=== PATIENT | male | born 1975 | race African-American/Black ===

== ENCOUNTER 2016-05-15 22:04 | Emergency (ER) | payer SELFPAY ==
[2016-05-15 22:44] VITALS: BP 139/84
--- NOTE | 2016-05-16 06:08 | EKG REPORT ---
SEVERITY:- NORMAL ECG - SINUS RHYTHM : Confirmed by: Alesha Turcios 16-May-2016 06:08:08
== END 2016-05-16 01:50 | disposition left against medical advice (07) ==
LOC: ER 22:04
DX: Z53.21 Procedure and treatment not carried out due to patient leaving prior to being seen by health care provider (principal)
CPT/HCPCS: 93005; 93010